=== PATIENT | male | born 1995 | race African-American/Black ===

== ENCOUNTER 2021-02-15 14:08 | Emergency (ER) | payer OTHER ==
[2021-02-15] MEDS ORDERED: Ondansetron PF 4 MG/2 ML Vial ONE (16:45)
[2021-02-15] MEDS ORDERED: Morphine 4 MG/ML VIAL ONE (16:46)
[2021-02-15] MEDS ORDERED: Ketorolac Tromethamine 30 MG/ML VIAL ONE (16:54)
== END 2021-02-15 18:08 | disposition home or self-care (01) ==
LOC: ERS 14:08
DX: S01.01XA Laceration without foreign body of scalp, initial encounter (principal); S70.02XA Contusion of left hip, initial encounter; M54.5 Low back pain; Y04.2XXA Assault by strike against or bumped into by another person, initial encounter
CPT/HCPCS: 12001; 70450; 72128; 72131; 96374; 96375; J1885; J2270; J2405